=== PATIENT | female | born 1940 | race Caucasian/White ===

== ENCOUNTER 2017-09-30 16:01 | Inpatient (IN) ==
[2017-09-30] MEDS ORDERED: METOPROLOL TARTRATE 5 MG/5 ML VIAL IV ONE (16:32)
[2017-09-30] MEDS ORDERED: ADENOSINE 6 MG/2 ML VIAL ONE (16:32)
[2017-09-30] MEDS ORDERED: SODIUM CHLORIDE 0.9% 1,000 ML IV STA (16:35)
[2017-09-30] MEDS ORDERED: ADENOSINE 6 MG/2 ML VIAL IV STA (16:38)
[2017-09-30] MEDS ORDERED: METOPROLOL TARTRATE 5 MG/5 ML VIAL IV STA (16:41)
[2017-09-30] MEDS ORDERED: DILTIAZEM 100 MG VIAL.ADD IV ONE (16:44)
[2017-09-30] MEDS ORDERED: SODIUM CHLORIDE 0.9% 100 ML IV ONE (16:45)
[2017-09-30] MEDS ORDERED: DILTIAZEM 50 MG/10 ML VIAL IV STA (16:48)
[2017-09-30] MEDS ORDERED: ASPIRIN 325 MG TABLET PO STA (16:56)
[2017-09-30] MEDS ORDERED: ENOXAPARIN 100 MG/ML SYRINGE SUBCUT STA (16:56)
[2017-09-30] MEDS ORDERED: ONDANSETRON 4 MG/2 ML VIAL IV STA (17:01)
[2017-09-30] MEDS ORDERED: PANTOPRAZOLE 40 MG VIAL IV STA (17:01)
[2017-09-30] MEDS ORDERED: MORPHINE 2 MG/1 ML SYRINGE IV STA (17:01)
[2017-09-30 17:28] LABS: Basophils # 0.1 10*3/uL (0.0-0.2); Basophils % 0.5 % (0.0-0.8); Eosinophils # 0.2 10*3/uL (0.0-0.87); Eosinophils % 1.8 % (0.00-10.9); Hematocrit 41.5 VOL% (35.7-47.0); Hemoglobin 13.3 GM/DL (12.0-16.0); Immature Granulocytes % 0.3 %; Immature Granulocytes Absolute 0.03 #; Lymphocytes # 2.2 10*3/uL (1.4-4.0); Lymphocytes % 22.9 % (21.3-54.2); Mean Corpuscular Hemoglobin 30 PG (27-34); Mean Platelet Volume 11.4 FL (9.6-12.0); Monocytes # 0.8 10*3/uL (0.11-0.8); Monocytes % 8.5 % (1.7-12.7); Neutrophils # 6.3 10*3/uL (1.4-7.4); Platelet Count 287 T/CUMM (130-400); Red Blood Count 4.51 MC/CUMM (3.8-5.5); Red Cell Distribution Width 12.8 % (9.3-17.3); White Blood Count 9.6 T/CUMM (4-12)
[2017-09-30 17:39] LABS: Bilirubin,Total 0.4 MG/DL (0.2-1.0); Calcium 9.8 MG/DL (8.5-10.1); Osmolality,Calculated 278.8 MOS/KG (273-304); Total Protein 8.2 G/DL (6.4-8.3)
[2017-09-30 17:40] LABS: PT Patient Result 10.5 SECS
[2017-09-30] MEDS ORDERED: ENOXAPARIN 60 MG/0.6 ML SYRINGE ONE (17:43)
[2017-09-30] MEDS ORDERED: PANTOPRAZOLE 40 MG VIAL IV ONE (17:43)
[2017-09-30] MEDS ORDERED: ASPIRIN 325 MG TABLET ONE (17:43)
[2017-09-30 17:53] LABS: Apearance,Urine CLEAR (Clear); Bilirubin,Urine Negative (Negative); Blood, Urine Negative (Negative); Glucose,Urine (UA) Negative (Negative); Ketones,Urine Negative (Negative); Nitrite,Urine Negative (Negative); Protein,Urine 30 MG/DL; RBC,Urine 2 /HPF (0-4); Squamous Epithelial Cell,Urine Occasional /HPF (0-10); Urine Color Straw (Yellow); Urine Specific Gravity 1.009 (1.001-1.035); Urine Urobilinogen < 2.0 EU/DL (0.2-1.0); WBC,Urine 5 /HPF (0-6)
[2017-09-30] MEDS ORDERED: cefTRIAXone 1,000 MG in SODIUM CHLORIDE 0.9% 100 ML IV STA (18:13)
[2017-09-30] MEDS ORDERED: cefTRIAXone 1,000 MG VIAL ONE (18:25)
[2017-09-30] MEDS ORDERED: MORPHINE 2 MG/1 ML SYRINGE IV PRN (20:41)
[2017-09-30] MEDS ORDERED: MAGNESIUM SULF RIDER 2 GM in PREMIX 1 EACH IV PRN (20:41)
[2017-09-30] MEDS ORDERED: ONDANSETRON 4 MG/2 ML VIAL IV PRN (20:41)
[2017-09-30] MEDS ORDERED: GLUCAGON 1 MG VIAL IM PRN (20:41)
[2017-09-30] MEDS ORDERED: DEXTROSE 50% 25 GM/50 ML VIAL IV PRN (20:41)
[2017-09-30] MEDS ORDERED: MAGNESIUM SULF RIDER 4 GM in PREMIX 1 EACH IV PRN (20:41)
[2017-09-30] MEDS ORDERED: POTASSIUM CHLORIDE 20 MEQ TABLET PO PRN (20:41)
[2017-09-30] MEDS: SODIUM CHLORIDE 0.9% 1,000 ML IV SCH (21:33)
[2017-09-30] MEDS: INSULIN REGULAR 100 UNIT/ML SUBCUT SCH (21:42)
[2017-10-01 05:36] LABS: Basophils % 0.6 % (0.0-0.8); Eosinophils # 0.2 10*3/uL (0.0-0.87); Eosinophils % 2.7 % (0.00-10.9); Hematocrit 35.5 VOL% (35.7-47.0); Hemoglobin 11.4 GM/DL (12.0-16.0); Immature Granulocytes % 0.3 %; Immature Granulocytes Absolute 0.02 #; Lymphocytes # 1.6 10*3/uL (1.4-4.0); Lymphocytes % 26.1 % (21.3-54.2); Mean Corpuscular HGB Conc 32.1 GM/DL (32-36); Mean Corpuscular Hemoglobin 30 PG (27-34); Mean Corpuscular Volume 91.7 FL (87-102); Mean Platelet Volume 10.8 FL (9.6-12.0); Monocytes # 0.7 10*3/uL (0.11-0.8); Monocytes % 11.9 % (1.7-12.7); Neutrophils # 3.6 10*3/uL (1.4-7.4); Neutrophils % 58.4 % (38.7-73.9); Platelet Count 213 T/CUMM (130-400); Red Blood Count 3.87 MC/CUMM (3.8-5.5); White Blood Count 6.2 T/CUMM (4-12)
[2017-10-01] MEDS: ENOXAPARIN 60 MG/0.6 ML SYRINGE SUBCUT SCH ×2 (06:02→17:12)
[2017-10-01 06:28] LABS: Albumin 3.3 G/DL (3.4-5.0); Bilirubin,Total 0.6 MG/DL (0.2-1.0); Calcium 8.2 MG/DL (8.5-10.1); Osmolality,Calculated 284.3 MOS/KG (273-304); Potassium 4.3 MMOL/L (3.5-5.1); Risk Ratio 5.3; Thyroid Stimulating Hormone 3.82 uIU/ml (0.358-3.74); Total Protein 6.2 G/DL (6.4-8.3); VLDL CHOLESTEROL 56.8 MG/DL
[2017-10-01] MEDS: INSULIN REGULAR 100 UNIT/ML SUBCUT SCH ×5 (07:29→21:52)
[2017-10-01] MEDS ORDERED: MAGNESIUM SULF RIDER 2 GM in PREMIX 1 EACH IV PRN (07:54)
[2017-10-01] MEDS ORDERED: DIAZEPAM 5 MG TABLET PO ONE (07:54)
[2017-10-01] MEDS ORDERED: diphenhydrAMINE CAP 25 MG CAPSULE PO ONE (07:54)
[2017-10-01] MEDS ORDERED: POTASSIUM CHLORIDE RIDER 10 MEQ in PREMIX 1 EACH IV PRN (07:54)
[2017-10-01] MEDS: PANTOPRAZOLE 40 MG TABLET PO SCH (11:41)
[2017-10-01] MEDS ORDERED: HEPARIN/NACL 0.9% 2 UNITS/ML 2,000 ML IV ONE (11:45)
[2017-10-01] MEDS ORDERED: LIDOCAINE 1%/EPI INJ 20 ML VIAL ONE (11:45)
[2017-10-01] MEDS ORDERED: MIDAZOLAM 2 MG/2 ML VIAL ONE (12:20)
[2017-10-01] MEDS ORDERED: fentaNYL 100 MCG/2 ML VIAL ONE (12:21)
[2017-10-01] MEDS: SODIUM CHLORIDE 0.9% 1,000 ML IV SCH (13:09)
[2017-10-01] MEDS ORDERED: cefTRIAXone 1,000 MG in SYRINGE 1 EACH IV SCH (18:00)
[2017-10-02] MEDS: SODIUM CHLORIDE 0.9% 1,000 ML IV SCH ×2 (00:34→01:09)
[2017-10-02] MEDS: ENOXAPARIN 60 MG/0.6 ML SYRINGE SUBCUT SCH (05:40)
[2017-10-02] MEDS: INSULIN REGULAR 100 UNIT/ML SUBCUT SCH (08:08)
[2017-10-02 08:48] VITALS: BP 144/68
[2017-10-02] MEDS: PANTOPRAZOLE 40 MG TABLET PO SCH (08:53)
== END 2017-10-02 10:18 | disposition home or self-care (01) | DRG 287 ==
LOC: N.ED 16:01 → N.EDINP 18:19 → N.TELEN 20:13
PROVIDERS: ADMIT Internal Medicine Interventional Cardiology; ATTEND Internal Medicine Interventional Cardiology
PROC: CLCCHCL (ICD-10-PCS; 2017-10-01 14:15)

== ENCOUNTER 2020-09-21 18:50 | Observation (INO) ==
[2020-09-21] MEDS ORDERED: ADENOSINE 6 MG/2 ML VIAL ONE ×2 (19:07→19:18)
[2020-09-21] MEDS ORDERED: DILTIAZEM 25 MG/5 ML VIAL IV ONE (19:20)
[2020-09-21] MEDS ORDERED: DILTIAZEM 50 MG/10 ML VIAL IV STA (19:36)
[2020-09-21] MEDS ORDERED: ADENOSINE 6 MG/2 ML VIAL IV STA ×3 (19:36)
[2020-09-21 19:40] LABS: Basophils # 0.1 10*3/uL (0.0-0.2); Basophils % 0.5 % (0.0-0.8); Eosinophils # 0.1 10*3/uL (0.0-0.87); Eosinophils % 0.8 % (0.00-10.9); Hematocrit 44.6 VOL% (35.7-47.0); Hemoglobin 14.1 GM/DL (12.0-16.0); Immature Granulocytes % 0.6 %; Immature Granulocytes Absolute 0.06 #; Lymphocytes # 2.6 10*3/uL (1.4-4.0); Lymphocytes % 24.1 % (21.3-54.2); Mean Corpuscular HGB Conc 31.6 GM/DL (32-36); Mean Corpuscular Volume 94.7 FL (87-102); Monocytes % 7.8 % (1.7-12.7); Neutrophils % 66.2 % (38.7-73.9); Platelet Count 330 T/CUMM (130-400); Red Blood Count 4.71 MC/CUMM (3.8-5.5); Red Cell Distribution Width 12.7 % (9.3-17.3); White Blood Count 10.8 T/CUMM (4-12)
[2020-09-21 20:01] LABS: Albumin 3.8 G/DL (3.4-5.0); Bilirubin,Total 0.4 MG/DL (0.2-1.0); Calcium 9.4 MG/DL (8.5-10.1); Osmolality,Calculated 274.5 MOS/KG (273-304); Potassium 4.8 MMOL/L (3.5-5.1); Total Protein 8.2 G/DL (6.4-8.3)
[2020-09-21 20:10] LABS: PT Patient Result 10.7 SECS (9.8-11.9); Partial Thromboplastin Time 32.4 SECS (23.9-33.8)
[2020-09-21] MEDS ORDERED: DEXTROSE 50% 25 GM/50 ML VIAL IV PRN ×2 (20:20)
[2020-09-21] MEDS ORDERED: ZALEPLON 5 MG CAPSULE PO PRN (20:20)
[2020-09-21] MEDS ORDERED: GLUCAGON 1 MG VIAL IM PRN (20:20)
[2020-09-21] MEDS ORDERED: ENOXAPARIN 40 MG/0.4 ML SYRINGE SUBCUT SCH (21:00)
[2020-09-21] MEDS: INSULIN REGULAR 100 UNIT/ML SUBCUT SCH (22:16)
[2020-09-22] MEDS ORDERED: ENOXAPARIN 30 MG/0.3 ML SYRINGE SUBCUT ONE (00:42)
[2020-09-22 08:29] LABS: Albumin 3.3 G/DL (3.4-5.0); Bilirubin,Total 0.7 MG/DL (0.2-1.0); Calcium 8.4 MG/DL (8.5-10.1); Osmolality,Calculated 272.8 MOS/KG (273-304); Potassium 4.2 MMOL/L (3.5-5.1); Total Protein 7.4 G/DL (6.4-8.3)
[2020-09-22] MEDS: INSULIN REGULAR 100 UNIT/ML SUBCUT SCH ×2 (08:49→12:01)
[2020-09-22] MEDS ORDERED: CALCIUM (CARBONATE) 600 MG TABLET PO SCH (09:00)
[2020-09-22] MEDS ORDERED: METOPROLOL SUCCINATE XL 50 MG TABLET PO SCH (09:00)
[2020-09-22] MEDS ORDERED: ENOXAPARIN 60 MG/0.6 ML SYRINGE SUBCUT SCH (09:00)
[2020-09-22] MEDS ORDERED: CHOLECALCIFEROL 1,000 UNIT TABLET PO SCH (09:00)
[2020-09-22] MEDS ORDERED: CYANOCOBALAMIN 500 MCG TABLET PO SCH (09:00)
[2020-09-22] MEDS ORDERED: PRIMIDONE 50 MG TABLET PO SCH (09:00)
[2020-09-22] MEDS ORDERED: ASPIRIN EC 81 MG TABLET PO SCH (09:00)
[2020-09-22] MEDS ORDERED: PANTOPRAZOLE 40 MG TABLET PO SCH (09:00)
[2020-09-22] MEDS ORDERED: DIGOXIN 0.125 MG TABLET PO SCH (13:00)
[2020-09-22 13:49] VITALS: BP 125/65
[2020-09-23] MEDS ORDERED: ERGOCALCIFEROL 50,000 UNIT CAPSULE PO SCH (09:00)
== END 2020-09-22 12:59 | disposition home or self-care (01) ==
LOC: N.EDINP 18:50 → N.ED 18:50 → N.EDINP 22:25 → N.TELEN 22:56
PROVIDERS: ADMIT Internal Medicine; ATTEND Internal Medicine

== ENCOUNTER 2020-11-09 20:40 | Inpatient (IN) ==
[2020-11-09] MEDS ORDERED: DILTIAZEM 25 MG/5 ML VIAL IV ONE (21:04)
[2020-11-09] MEDS ORDERED: DILTIAZEM 100 MG VIAL.ADD IV ONE (21:09)
[2020-11-09] MEDS ORDERED: DILTIAZEM 50 MG/10 ML VIAL IV STA (21:10)
[2020-11-09] MEDS ORDERED: SODIUM CHLORIDE 0.9% 1,000 ML IV STA (21:11)
[2020-11-09 21:12] LABS: Basophils # 0.1 10*3/uL (0.0-0.2); Basophils % 0.7 % (0.0-0.8); Eosinophils # 0.1 10*3/uL (0.0-0.87); Eosinophils % 1.5 % (0.00-10.9); Hematocrit 41.4 VOL% (35.7-47.0); Immature Granulocytes % 0.5 %; Immature Granulocytes Absolute 0.04 #; Lymphocytes # 2.5 10*3/uL (1.4-4.0); Lymphocytes % 28.2 % (21.3-54.2); Mean Corpuscular HGB Conc 31.4 GM/DL (32-36); Mean Corpuscular Volume 93.5 FL (87-102); Mean Platelet Volume 10.5 FL (9.6-12.0); Monocytes % 8.7 % (1.7-12.7); Neutrophils % 60.4 % (38.7-73.9); Platelet Count 257 T/CUMM (130-400); Red Blood Count 4.43 MC/CUMM (3.8-5.5); Red Cell Distribution Width 12.9 % (9.3-17.3); White Blood Count 8.7 T/CUMM (4-12)
[2020-11-09 21:30] LABS: PT Patient Result 10.5 SECS (9.8-11.9); Partial Thromboplastin Time 27.9 SECS (23.9-33.8)
[2020-11-09] MEDS ORDERED: DILTIAZEM INJ 100 MG in SODIUM CHLORIDE 0.9% 100 ML IV SCH (21:30)
[2020-11-09 21:48] LABS: Albumin 3.7 G/DL (3.4-5.0); Bilirubin,Total 0.8 MG/DL (0.2-1.0); Calcium 8.8 MG/DL (8.5-10.1); Free T4 (Free Thyroxine) 0.86 NG/DL (0.76-1.46); Osmolality,Calculated 279.8 MOS/KG (273-304); Potassium 4.2 MMOL/L (3.5-5.1); Thyroid Stimulating Hormone 6.7 uIU/ml (0.358-3.74); Total Protein 7.8 G/DL (6.4-8.2)
[2020-11-09] MEDS ORDERED: ENOXAPARIN 30 MG/0.3 ML SYRINGE SUBCUT STA (21:59)
[2020-11-09] MEDS ORDERED: ENOXAPARIN 80 MG/0.8 ML SYRINGE SUBCUT ONE (22:03)
[2020-11-09] MEDS ORDERED: DEXTROSE 50% 25 GM/50 ML VIAL IV PRN ×2 (22:10)
[2020-11-09] MEDS ORDERED: guaiFENesin/DM ER 600-30 MG TABLET PO PRN (22:10)
[2020-11-09] MEDS ORDERED: hydrALAZINE 20 MG/1 ML VIAL IV PRN (22:10)
[2020-11-09] MEDS ORDERED: GLUCAGON 1 MG VIAL IM PRN ×2 (22:10)
[2020-11-09] MEDS ORDERED: diphenhydrAMINE CAP 25 MG CAPSULE PO PRN (22:10)
[2020-11-09] MEDS ORDERED: NICOTINE 21 MG/24 HR PATCH TRANSDERM PRN (22:10)
[2020-11-09] MEDS ORDERED: ACETAMINOPHEN 325 MG TABLET PO PRN (22:10)
[2020-11-09] MEDS ORDERED: ONDANSETRON 4 MG/2 ML VIAL IV PRN (22:10)
[2020-11-09] MEDS ORDERED: DIGOXIN 0.5 MG/2 ML AMP IV ONE (22:15)
[2020-11-09 23:00] LABS: Barbiturates Screen,Urine Negative (Negative); Benzodiazepines Screen,Urine Negative (Negative); Cannabinoid Screen,Urine Negative (Negative); Opiate Screen,Urine Negative (Negative); Phencyclidine Screen,Urine Negative (Negative)
[2020-11-10 06:04] LABS: Basophils % 0.6 % (0.0-0.8); Eosinophils # 0.1 10*3/uL (0.0-0.87); Eosinophils % 2.1 % (0.00-10.9); Hematocrit 36.8 VOL% (35.7-47.0); Hemoglobin 11.7 GM/DL (12.0-16.0); Immature Granulocytes % 0.3 %; Immature Granulocytes Absolute 0.02 #; Lymphocytes # 1.8 10*3/uL (1.4-4.0); Lymphocytes % 26.2 % (21.3-54.2); Mean Corpuscular HGB Conc 31.8 GM/DL (32-36); Mean Corpuscular Volume 92.9 FL (87-102); Mean Platelet Volume 10.3 FL (9.6-12.0); Monocytes % 10.5 % (1.7-12.7); Neutrophils % 60.3 % (38.7-73.9); Platelet Count 209 T/CUMM (130-400); Red Blood Count 3.96 MC/CUMM (3.8-5.5); Red Cell Distribution Width 12.9 % (9.3-17.3); White Blood Count 6.7 T/CUMM (4-12)
[2020-11-10 06:25] LABS: Calcium 8.5 MG/DL (8.5-10.1); Osmolality,Calculated 281.3 MOS/KG (273-304)
[2020-11-10] MEDS ORDERED: ERGOCALCIFEROL 50,000 UNIT CAPSULE PO SCH (09:00)
[2020-11-10] MEDS: INSULIN LISPRO 100 UNIT/ML SUBCUT SCH ×4 (09:28→20:38)
[2020-11-10] MEDS: CHOLECALCIFEROL 1,000 UNIT TABLET PO SCH (09:31)
[2020-11-10] MEDS: ASPIRIN EC 81 MG TABLET PO SCH (09:31)
[2020-11-10] MEDS: CYANOCOBALAMIN 500 MCG TABLET PO SCH (09:31)
[2020-11-10] MEDS: CALCIUM (CARBONATE) 600 MG TABLET PO SCH (09:31)
[2020-11-10] MEDS: PRIMIDONE 50 MG TABLET PO SCH ×2 (09:31→20:37)
[2020-11-10] MEDS: FLECAINIDE 50 MG TABLET PO SCH ×2 (09:31→20:37)
[2020-11-10] MEDS: METOPROLOL SUCCINATE XL 50 MG TABLET PO SCH (09:31)
[2020-11-10] MEDS: ENOXAPARIN 40 MG/0.4 ML SYRINGE SUBCUT SCH (14:13)
[2020-11-10] MEDS: DIGOXIN 0.125 MG TABLET PO SCH (14:13)
[2020-11-11 05:48] LABS: Basophils % 0.8 % (0.0-0.8); Eosinophils # 0.1 10*3/uL (0.0-0.87); Hematocrit 38.2 VOL% (35.7-47.0); Hemoglobin 12.2 GM/DL (12.0-16.0); Immature Granulocytes % 0.4 %; Immature Granulocytes Absolute 0.02 #; Lymphocytes # 1.2 10*3/uL (1.4-4.0); Lymphocytes % 24.6 % (21.3-54.2); Mean Corpuscular HGB Conc 31.9 GM/DL (32-36); Mean Corpuscular Volume 92.7 FL (87-102); Mean Platelet Volume 10.7 FL (9.6-12.0); Neutrophils % 60.2 % (38.7-73.9); Platelet Count 206 T/CUMM (130-400); Red Blood Count 4.12 MC/CUMM (3.8-5.5); Red Cell Distribution Width 12.9 % (9.3-17.3)
[2020-11-11 06:08] LABS: Calcium 8.7 MG/DL (8.5-10.1)
[2020-11-11] MEDS: INSULIN LISPRO 100 UNIT/ML SUBCUT SCH ×4 (07:15→20:30)
[2020-11-11] MEDS: PRIMIDONE 50 MG TABLET PO SCH ×2 (09:27→20:29)
[2020-11-11] MEDS: FLECAINIDE 50 MG TABLET PO SCH ×2 (09:27→20:29)
[2020-11-11] MEDS: METOPROLOL SUCCINATE XL 50 MG TABLET PO SCH (09:27)
[2020-11-11] MEDS: CALCIUM (CARBONATE) 600 MG TABLET PO SCH (09:27)
[2020-11-11] MEDS: CHOLECALCIFEROL 1,000 UNIT TABLET PO SCH (09:27)
[2020-11-11] MEDS: CYANOCOBALAMIN 500 MCG TABLET PO SCH (09:27)
[2020-11-11] MEDS: ASPIRIN EC 81 MG TABLET PO SCH (09:28)
[2020-11-11] MEDS: ENOXAPARIN 40 MG/0.4 ML SYRINGE SUBCUT SCH (12:27)
[2020-11-11] MEDS: DIGOXIN 0.125 MG TABLET PO SCH (12:27)
[2020-11-12 04:15] LABS: Basophils # 0.1 10*3/uL (0.0-0.2); Basophils % 0.8 % (0.0-0.8); Eosinophils # 0.1 10*3/uL (0.0-0.87); Eosinophils % 1.7 % (0.00-10.9); Hematocrit 39.2 VOL% (35.7-47.0); Hemoglobin 12.8 GM/DL (12.0-16.0); Immature Granulocytes % 0.3 %; Immature Granulocytes Absolute 0.02 #; Lymphocytes # 1.6 10*3/uL (1.4-4.0); Lymphocytes % 26.2 % (21.3-54.2); Mean Corpuscular HGB Conc 32.7 GM/DL (32-36); Mean Corpuscular Volume 91.8 FL (87-102); Mean Platelet Volume 10.6 FL (9.6-12.0); Monocytes % 10.9 % (1.7-12.7); Neutrophils % 60.1 % (38.7-73.9); Platelet Count 210 T/CUMM (130-400); Red Blood Count 4.27 MC/CUMM (3.8-5.5); Red Cell Distribution Width 12.8 % (9.3-17.3)
[2020-11-12 04:29] LABS: Calcium 8.8 MG/DL (8.5-10.1); Potassium 4.1 MMOL/L (3.5-5.1)
[2020-11-12] MEDS: INSULIN LISPRO 100 UNIT/ML SUBCUT SCH (07:31)
[2020-11-12 08:01] LABS: Osmolality,Calculated 270.2 MOS/KG (273-304)
[2020-11-12 08:50] VITALS: BP 151/81
[2020-11-12] MEDS ORDERED: lisinopriL 5 MG TABLET PO SCH (09:00)
[2020-11-12] MEDS: CYANOCOBALAMIN 500 MCG TABLET PO SCH (09:28)
[2020-11-12] MEDS: CALCIUM (CARBONATE) 600 MG TABLET PO SCH (09:29)
[2020-11-12] MEDS: METOPROLOL SUCCINATE XL 50 MG TABLET PO SCH (09:29)
[2020-11-12] MEDS: PRIMIDONE 50 MG TABLET PO SCH (09:29)
[2020-11-12] MEDS: ASPIRIN EC 81 MG TABLET PO SCH (09:29)
[2020-11-12] MEDS: FLECAINIDE 50 MG TABLET PO SCH (09:29)
[2020-11-12] MEDS: CHOLECALCIFEROL 1,000 UNIT TABLET PO SCH (09:29)
== END 2020-11-12 10:41 | disposition home or self-care (01) | DRG 309 ==
LOC: N.EDINP 20:40 → N.ED 20:40 → SUATTDRO 22:10 → N.TELES 23:42
PROVIDERS: ADMIT Internal Medicine; ATTEND Internal Medicine